=== PATIENT | female | born 1975 | race African-American/Black ===

== ENCOUNTER 2019-09-13 17:54 | Emergency (ER) | payer SELFPAY ==
[~2019-09-13] VITALS: Ht 157.5 cm; Wt 80.0 kg
[2019-09-13 18:30] VITALS: BP 137/73
== END 2019-09-13 19:45 | disposition left against medical advice (07) ==
LOC: ER 17:54
DX: Z53.21 Procedure and treatment not carried out due to patient leaving prior to being seen by health care provider (principal)
CPT/HCPCS: 93005

== ENCOUNTER 2020-04-27 15:02 | Emergency (ER) | payer SELFPAY ==
[~2020-04-27] VITALS: Ht 162.6 cm; Wt 65.0 kg
[2020-04-27] MEDS ORDERED: LEVETIRACETAM 500MG PREMIX 100 ML IV ONE (15:30)
[2020-04-27 15:48] LABS: CHLORIDE 107 mEq/L (98-107)
[2020-04-27 15:49] LABS: BASOPHILS % 0.9 % (0.0-2.0); EOSINOPHILS % 1.6 % (0.0-5.0); HEMATOCRIT. 38.3 % (36.0-48.0); HEMOGLOBIN. 12.7 g/dL (12.0-16.0); LYMPHOCYTES % 42.4 % (20.0-50.0); MEAN CORPUSCULAR HEMOGLOBIN 27.7 pg (28.0-32.0); MEAN CORPUSCULAR VOLUME 83.7 fL (81.0-99.0); MEAN PLATELET VOLUME 7.8 fl (7.4-10.4); NEUTROPHILS % 45.1 % (40.0-76.0); PLATELET 337 x1000/uL (130-400); RED BLOOD CELL COUNT 4.57 mill/uL (4.2-5.4); RED CELL DISTRIBUTION WIDTH 16.9 % (11.6-14.6)
[2020-04-27 16:06] LABS: HCG SCREEN NEGATIVE
[2020-04-27 17:18] VITALS: BP 115/63
== END 2020-04-27 17:35 | disposition home or self-care (01) ==
LOC: ER 15:02
DX: G40.909 Epilepsy, unspecified, not intractable, without status epilepticus (principal); I25.2 Old myocardial infarction; Z86.73 Personal history of transient ischemic attack (TIA), and cerebral infarction without residual deficits; Z88.1 Allergy status to other antibiotic agents
CPT/HCPCS: 36415; 80053; 82962; 84703; 85025; 96365; 99284; J1953

== ENCOUNTER 2022-06-15 15:30 | Emergency (ER) | payer OTHER ==
[~2022-06-15] VITALS: Ht 157.5 cm; Wt 95.0 kg
[2022-06-15 15:33] VITALS: BP 126/98
== END 2022-06-15 15:44 | disposition left against medical advice (07) ==
LOC: ER 15:30
DX: Z53.21 Procedure and treatment not carried out due to patient leaving prior to being seen by health care provider (principal)
CPT/HCPCS: 93005